=== PATIENT | female | born 1985 | race Caucasian/White ===

== ENCOUNTER 2017-03-01 20:35 | Emergency (ER) | payer SELFPAY ==
[~2017-03-01] VITALS: Ht 167.6 cm; Wt 60.0 kg
[2017-03-01 21:04] VITALS: BP 120/80
== END 2017-03-01 21:40 | disposition home or self-care (01) ==
LOC: EMS 20:38
DX: K08.89 Other specified disorders of teeth and supporting structures (principal)
CPT/HCPCS: 99283

== ENCOUNTER 2017-07-19 05:18 | Emergency (ER) | payer MEDICAID ==
[~2017-07-19] VITALS: Ht 172.7 cm; Wt 68.2 kg
[2017-07-19 06:30] VITALS: BP 131/80
[2017-07-19] MEDS ORDERED: HYDROCODONE/ACETAMINOPHEN 5-325 MG TABLET PO ONE (07:00)
== END 2017-07-19 07:36 | disposition home or self-care (01) ==
LOC: EMS 05:18
DX: K02.9 Dental caries, unspecified (principal)
CPT/HCPCS: 81025; 99283